=== PATIENT | male | born 1980 | race African-American/Black ===

== ENCOUNTER 2020-09-10 15:42 | Observation (INO) ==
[2020-09-10 20:07] LABS: Basophils % 0.3 % (0.0-0.8); Eosinophils # 0.3 10*3/uL (0.0-0.87); Eosinophils % 2.7 % (0.00-10.9); Hematocrit 45.2 VOL% (42.0-52.0); Hemoglobin 14.7 GM/DL (14.0-18.0); Immature Granulocytes % 0.2 %; Immature Granulocytes Absolute 0.03 #; Lymphocytes # 4.3 10*3/uL (1.4-4.0); Lymphocytes % 34.3 % (21.2-54.2); Mean Corpuscular HGB Conc 32.5 GM/DL (32-36); Mean Corpuscular Volume 91.5 FL (87-102); Mean Platelet Volume 9.7 FL (9.6-12.0); Monocytes % 7.7 % (1.7-12.7); Neutrophils % 54.8 % (38.7-73.9); Platelet Count 265 T/CUMM (130-400); Red Blood Count 4.94 MC/CUMM (3.8-5.5); Red Cell Distribution Width 14.2 % (9.3-17.3); White Blood Count 12.4 T/CUMM (4-12)
[2020-09-10] MEDS ORDERED: PIPERACILLIN/TAZOBACTAM 3,375 MG in SODIUM CHLORIDE 0.9% 100 ML IV STA (20:09)
[2020-09-10 20:25] LABS: Alanine Aminotransferase 14 U/L (16-61); Albumin 3.4 G/DL (3.4-5.0); Alkaline Phosphatase 93 U/L (45-117); Aspartate Amino Transferase 14 U/L (0-37); Bilirubin,Total < 0.39 MG/DL (0.20-1.00); Blood Urea Nitrogen 9 MG/DL (7-18); Calcium 8.7 MG/DL (8.5-10.1); Carbon Dioxide 30 MMOL/L (21-32); Estimated Glom Filtration Rate 152 ML/MIN; Glucose 89 MG/DL (74-106); Osmolality,Calculated 274.5 MOS/KG (273-304); Potassium 3.7 MMOL/L (3.5-5.1); Sodium 139 MMOL/L (136-145); Total Protein 7.6 G/DL (6.4-8.2)
[2020-09-10] MEDS ORDERED: SODIUM CHLORIDE 0.9% 1,000 ML IV STA (20:25)
[2020-09-10] MEDS ORDERED: DEXTROSE 50% 25 GM/50 ML VIAL IV PRN (21:57)
[2020-09-10] MEDS ORDERED: GLUCAGON 1 MG VIAL IM PRN (21:57)
[2020-09-10] MEDS ORDERED: DOCUSATE SODIUM 100 MG CAPSULE PO PRN (21:58)
[2020-09-10] MEDS ORDERED: MORPHINE 2 MG/1 ML SYRINGE IV PRN (21:58)
[2020-09-10] MEDS ORDERED: ONDANSETRON 4 MG/2 ML VIAL IV PRN (21:58)
[2020-09-10] MEDS ORDERED: traZODone 50 MG TABLET PO PRN (21:58)
[2020-09-10] MEDS ORDERED: hydrALAZINE 20 MG/1 ML VIAL IV PRN (21:58)
[2020-09-10] MEDS ORDERED: ACETAMINOPHEN 325 MG TABLET PO PRN (21:58)
[2020-09-10] MEDS: GABAPENTIN 400 MG CAPSULE PO SCH (23:08)
[2020-09-10] MEDS: DIAZEPAM 5 MG TABLET PO SCH (23:09)
[2020-09-10] MEDS: VANCOMYCIN INJ 1,250 MG in SODIUM CHLORIDE 0.9% 250 ML IV SCH (23:16)
[2020-09-11] MEDS: PIPERACILLIN/TAZOBACTAM 3,375 MG in SODIUM CHLORIDE 0.9% 100 ML IV SCH ×3 (03:09→21:38)
[2020-09-11 05:57] LABS: Basophils % 0.4 % (0.0-0.8); Eosinophils # 0.3 10*3/uL (0.0-0.87); Eosinophils % 3.2 % (0.00-10.9); Hematocrit 42.3 VOL% (42.0-52.0); Hemoglobin 13.8 GM/DL (14.0-18.0); Immature Granulocytes % 0.2 %; Immature Granulocytes Absolute 0.02 #; Lymphocytes # 3.3 10*3/uL (1.4-4.0); Mean Corpuscular HGB Conc 32.6 GM/DL (32-36); Mean Corpuscular Volume 91.2 FL (87-102); Mean Platelet Volume 10.2 FL (9.6-12.0); Monocytes % 8.5 % (1.7-12.7); Neutrophils % 51.7 % (38.7-73.9); Platelet Count 245 T/CUMM (130-400); Red Blood Count 4.64 MC/CUMM (3.8-5.5); Red Cell Distribution Width 14.1 % (9.3-17.3); White Blood Count 9.2 T/CUMM (4-12)
[2020-09-11 06:10] LABS: PT Patient Result 10.9 SECS (10.5-12.0)
[2020-09-11 06:18] LABS: Calcium 8.4 MG/DL (8.5-10.1); Osmolality,Calculated 277.3 MOS/KG (273-304)
[2020-09-11] MEDS ORDERED: BACLOFEN 20 MG TABLET PO SCH (09:00)
[2020-09-11] MEDS: DIAZEPAM 5 MG TABLET PO SCH ×3 (09:02→21:33)
[2020-09-11] MEDS: GABAPENTIN 400 MG CAPSULE PO SCH ×3 (09:02→21:34)
[2020-09-11] MEDS: VANCOMYCIN INJ 1,250 MG in SODIUM CHLORIDE 0.9% 250 ML IV SCH (12:13)
[2020-09-11] MEDS: tiZANidine 4 MG TABLET PO SCH ×2 (14:28→21:34)
[2020-09-11] MEDS: BACLOFEN 20 MG TABLET PO SCH ×2 (14:30→21:33)
[2020-09-11] MEDS ORDERED: BACLOFEN 10 MG TABLET PO SCH (15:00)
[2020-09-12] MEDS: VANCOMYCIN INJ 1,250 MG in SODIUM CHLORIDE 0.9% 250 ML IV SCH (01:52)
[2020-09-12] MEDS: PIPERACILLIN/TAZOBACTAM 3,375 MG in SODIUM CHLORIDE 0.9% 100 ML IV SCH (04:22)
[2020-09-12 05:33] LABS: Basophils % 0.4 % (0.0-0.8); Eosinophils # 0.3 10*3/uL (0.0-0.87); Eosinophils % 4.1 % (0.00-10.9); Hematocrit 40.5 VOL% (42.0-52.0); Hemoglobin 13.7 GM/DL (14.0-18.0); Immature Granulocytes % 0.3 %; Immature Granulocytes Absolute 0.02 #; Lymphocytes # 4.3 10*3/uL (1.4-4.0); Lymphocytes % 55.1 % (21.2-54.2); Mean Corpuscular HGB Conc 33.8 GM/DL (32-36); Neutrophils % 32.1 % (38.7-73.9); Platelet Count 246 T/CUMM (130-400); Red Cell Distribution Width 13.8 % (9.3-17.3); White Blood Count 7.8 T/CUMM (4-12)
[2020-09-12 05:56] LABS: Eosinophils 7 % (0-10); Lymphocytes 62 % (20-55); Segmented Neutrophils 29 % (50-85); Total Cells Counted 100
[2020-09-12 05:57] LABS: Atypical Lymphocytes Few; Platelet Estimate Adequate
[2020-09-12 06:02] LABS: Calcium 8.4 MG/DL (8.5-10.1); Osmolality,Calculated 276.3 MOS/KG (273-304)
[2020-09-12] MEDS: DIAZEPAM 5 MG TABLET PO SCH (08:16)
[2020-09-12] MEDS: GABAPENTIN 400 MG CAPSULE PO SCH (08:16)
[2020-09-12] MEDS: BACLOFEN 20 MG TABLET PO SCH (08:16)
[2020-09-12] MEDS: tiZANidine 4 MG TABLET PO SCH (08:16)
[2020-09-12 11:06] VITALS: BP 119/78
== END 2020-09-12 12:58 | disposition home or self-care (01) ==
LOC: N.EDINP 15:42 → N.ED 15:42 → N.EDINP 22:11 → N.3E 22:12
PROVIDERS: ADMIT Internal Medicine Nephrology; ATTEND Internal Medicine Nephrology